=== PATIENT | female | born 1990 | race Hispanic/Latino ===

== ENCOUNTER 2018-01-24 03:47 | Inpatient (IN) | payer OTHER ==
[2018-01-24] MEDS ORDERED: Ringers Lactate 1,000 ML IV ONE (04:19)
[2018-01-24] MEDS ORDERED: Ringers Lactate 1,000 ML IV PRN (04:19)
[2018-01-24] MEDS ORDERED: PROMETHAZINE 25 MG/ML VIAL IM PRN (04:19)
[2018-01-24] MEDS ORDERED: CARBOPROST TROME 250 MCG/ML IM PRN (04:19)
[2018-01-24] MEDS ORDERED: OXYTOCIN/LR 20 UNIT/1,000 ML BAG IV ONE (04:19)
[2018-01-24] MEDS ORDERED: METHYLERGONOVINE 0.2MG/ML AMP IM PRN (04:19)
[2018-01-24] MEDS ORDERED: BUTORPHANOL 1 MG/ML INJ IV PRN (04:19)
[2018-01-24] MEDS ORDERED: Ringers Lactate 1,000 ML IV SCH (05:00)
[2018-01-24] MEDS ORDERED: OXYTOCIN/LR 20 UNITS/1,000 ML BAG IV SCH (05:00)
[2018-01-24 05:11] VITALS: BMI 45.6
[2018-01-24 05:30] LABS: RPR Titer ND
[2018-01-24 05:41] LABS: Absolute Lymphocytes (CBC) 2.3 K/uL (0.7-4.9); Absolute Monocytes 0.7 K/uL (0.1-1.3); Basophils % 0.3 % (0-1.3); Eosinophils % 0.8 % (0-4.4); Hematocrit 37.9 % (36.0-45.0); Lymphocytes % 20.9 % (15.3-44.8); MCH 28.9 pg (27.0-35.0); MCV 84.9 fL (80-100); Monocytes % 6.6 % (3.3-12.3); RBC Red Blood Cell Count 4.46 M/uL (3.86-4.86)
[2018-01-24 05:47] LABS: Urine Appearance CLOUDY; Urine Bilirubin NEGATIVE (NEG); Urine Blood 2+ (NEG); Urine Color YELLOW; Urine Glucose NEGATIVE (NEG); Urine Protein NEGATIVE (NEG); Urine Specific Gravity 1.015 (1.005-1.030); Urine Urobilinogen 0.2 mg/dL (0.2-1.0)
[2018-01-24 06:28] LABS: Urine Bacteria 20-50 /HPF (<20); Urine Culture Reflex Order REFLEXED; Urine RBC <5 /HPF (NONE SEEN)
--- NOTE | 2018-01-24 07:20 | PREOPHP ---
Date of Admission: 01/24/2018 This is a 27-year-old 2, para 1, at 40 weeks and 1 day for induction. 3.5 cm, 60% effaced, v ertex, well applied, -1 to almost 0 station. Rupture of membranes, clear fluid. Imer regular ly on light Pitocin. At this point, we will increase. Labor talk given. Anticipate delivery someti me later today. The patient probably will be requesting epidural, although right now, she is doing q uite well on her own. Full admission talk given. ROCIO/SABRINA Voice ID: [id number]
[2018-01-24] MEDS ORDERED: FENTANYL/BUPIVACAINE/NS/PF 200 MCG/100 ML BAG EP PRN (10:15)
[2018-01-24] MEDS ORDERED: BUPIVACAINE 0.25% PF 10 ML VIAL IV ONE (10:16)
[2018-01-24] MEDS ORDERED: FENTANYL CITR 100 MCG/2 ML IV ONE (10:17)
[2018-01-24] MEDS ORDERED: LIDOCAINE 2% INJ, 20 mL 20 ML ONE (10:33)
[2018-01-24] MEDS ORDERED: METHYLERGONOVINE 0.2MG/ML AMP IM ONE (10:33)
[2018-01-24] MEDS ORDERED: DIPHENHYDRAMINE 25 MG TAB/CAP PO PRN (10:54)
[2018-01-24] MEDS ORDERED: Oxycodone HCl/Acetaminophen 1 TAB TAB PO PRN ×2 (10:54)
[2018-01-24] MEDS ORDERED: ACETAMINOPHEN 500 MG TAB PO PRN (10:54)
[2018-01-24] MEDS ORDERED: DOCUSATE NA/SENNA CONC 1 TAB PO PRN (10:54)
[2018-01-24] MEDS ORDERED: BISACODYL 10 MG RECTAL SUPP RECT PRN (10:54)
[2018-01-24] MEDS ORDERED: IBUPROFEN 200 MG TAB PO PRN (10:54)
[2018-01-24] MEDS ORDERED: OXYTOCIN/LR 20 UNIT/1,000 ML BAG IV SCH (11:00)
--- NOTE | 2018-01-24 11:17 | OP ---
Surgeon: Ivan Ortiz MD A 27-year-old 2, para 1, 40 weeks 1 day, came in for labor induction, 3.5 cm on admission. R upture of membranes, clear fluid. Stadol 1 mg IV, requested epidural at 4 cm, but went rapidly to co mplete and on the perineum one good group of pushes with the contractions. She delivered an estimate d 7-pound plus female. Apgars 9 and 9. No episiotomy. Very small first degree laceration on the rig ht side of the introitus. Two gkcceb-tn-fetur stitches, 3-0 chromic with local infiltration. Placen ta inspected, noted to be intact and normal. Schultze's delivery. Estimated blood loss 250 cc or le ss. The patient tolerated all procedures well. Rh positive, immune to Rubella. Negative beta strep screen. Final Diagnoses: Term intrauterine , spontaneous vaginal delivery. ROCIO/SABRINA Voice ID: [id number] Report ID: [id number]
[2018-01-24] MEDS ORDERED: Ringers Lactate 2,000 ML IV ONE (11:31)
[2018-01-25 00:52] LABS: RPR (Rapid Plasma Reagin) NON-REACT (NON-REACT)
[2018-01-25 12:45] VITALS: BP 122/88; TEMP 97.6
--- NOTE | 2018-01-25 21:43 | DS ---
Date of Discharge: 01/25/2018 Hospital Course: A 27-year-old female, 2, para 1, 40 weeks 1 day, delivered of an estimated 7 pounds plus female, Apgars 9 and 9. One very small first-degree laceration requiring 2 figure-of-e ight stitches with 3-0 chromic local infiltration. Schultze delivery of the placenta. Less than 250 cc blood loss. Placenta inspected and noted to be intact and normal. Rh positive, immune to Rubell a. Negative beta strep screen. The patient has had her Tdap immunization during the . Afe brile, ambulating, voiding. Lochia is normal. Full dismissal talk given. We will send her home wit h tramadol as she has taken Percocet and having afterpains. Final Diagnoses: 1.Term intrauterine . 2.Vaginal delivery. ROCIO/SABRINA Voice ID: [id number] Report ID: [id number]
[2018-01-27 03:35] LABS: HBsAG Nonreactive (Nonreactive)
== END 2018-01-25 13:40 | disposition home or self-care (01) | DRG 775 ==
LOC: 2ND-WC 03:47
PROVIDERS: ADMIT Specialist; ATTEND Specialist
PROC: 10E0XZZ Delivery of Products of Conception, External Approach (ICD-10-PCS; principal; 2018-01-24)
PROC: 0HQ9XZZ Repair Perineum Skin, External Approach (ICD-10-PCS; 2018-01-24)
PROC: 10907ZC Drainage of Amniotic Fluid, Therapeutic from Products of Conception, Via Natural or Artificial Opening (ICD-10-PCS; 2018-01-24)
PROC: 3E033VJ Introduction of Other Hormone into Peripheral Vein, Percutaneous Approach (ICD-10-PCS; 2018-01-24)
DX: O70.0 First degree perineal laceration during delivery (principal); Z3A.40 40 weeks gestation of pregnancy; Z37.0 Single live birth
CPT/HCPCS: 36415; 81001; 85025; 86592; 86901; 87086; 87088; 87340; J0595; J2210; J2550; J2590